=== PATIENT | female | born 1975 | race Hispanic/Latino ===

== ENCOUNTER 2020-04-17 11:32 | Emergency (ER) | payer OTHER ==
[~2020-04-17] VITALS: Ht 170.2 cm; Wt 104.3 kg
[2020-04-17] MEDS ORDERED: SODIUM CHLORIDE 0.9% 1000ML 1,000 ML IV STA (12:07)
[2020-04-17] MEDS ORDERED: ONDANSETRON HCL INJ 2MG/ML 2ML 2 MG/ML VIAL IV STA (12:07)
--- NOTE | 2020-04-17 12:08 | Emergency Department Note ---
History of Present Illnes History of Present Illness Chief Complaint: Abdominal Complaints History of Present Illness This is a 45 year old female 5 days of abd pain generalized with n/v/d. Historian: Patient Arrival Mode: Car Onset (how long ago): day(s) Radiation: Reports abdomen Severity: moderate Onset quality: gradual Duration (how long): day(s) Timing of current episode: constant Progression: worsening Relieving factors: none Exacerbating factors: none Associated symptoms: Reports nausea/vomiting Treatments prior to arrival: none Past Medical/Family History Physician Review I have reviewed the patient's past medical and family history. Any updates have been documented here. Past Medical History Recent Fever: No Clinical Suspicion of Infectio: No New/Unexplained Change in Ment: No Past Medical History: Asthma Past Surgical History: Cholecysctectomy, Tubal Ligation Social History Smoking Cessation: Never Smoker Alcohol Use: None Any Illegal Drug Use: No Review of Systems Review of Systems Constitutional: Denies fever EENTM: Reports no symptoms Cardiovascular: Reports no symptoms Respiratory: Reports no symptoms Gastrointestinal: Reports abdominal pain, Reports diarrhea, Reports nausea, Reports vomiting Genitourinary: Reports no symptoms Musculoskeletal: Reports no symptoms Integumentary: Reports no symptoms Neurological: Reports no symptoms Psychological: Reports no symptoms Endocrine: Reports no symptoms Hematological/Lymphatic: Reports no symptoms Physical Exam Related Data Allergies: Coded Allergies: Penicillins (Verified Allergy, Severe, 04/17/20) Triage Vital Signs Vital Signs Date Time Temp Pulse Resp B/P (MAP) Pulse Ox O2 Delivery O2 Flow Rate FiO2 04/17/20 12:03 97.5 81 16 149/86 100 Vital signs reviewed: Yes Physical Exam CONSTITUTIONAL Constitutional: Present well-developed, Present well-nourished HENT HENT: Present normocephalic, Present atraumatic, Present oropharynx clear/moist, Present nose normal HENT L/R: Present left ext ear normal, Present right ext ear normal EYES Eyes: Reports PERRL, Reports conjunctivae normal NECK Neck: Present ROM normal PULMONARY Pulmonary: Present effort normal, Present breath sounds normal CARDIOVASCULAR Cardiovascular: Present regular rhythm, Present heart sounds normal, Present capillary refill normal, Present normal rate GASTROINTESTINAL Abdominal: Present soft, Present distension, Present tender GENITOURINARY Genitourinary: Present exam deferred SKIN Skin: Present warm, Present dry MUSCULOSKELETAL Musculoskeletal: Present ROM normal NEUROLOGICAL Neurological: Present alert, Present oriented x 3, Present no gross motor or sensory deficits PSYCHOLOGICAL Psychological: Present mood/affect normal, Present judgement normal Results Laboratory Lab results reviewed: Yes Laboratory comments Laboratory Tests Test 04/17/20 13:00 White Blood Count 9.61 x10e3/uL (4.8-10.8) Red Blood Count 5.13 x10e6/uL (3.6-5.1) Hemoglobin 8.1 g/dL (12.0-16.0) Hematocrit 32.1 % (34.2-44.1) Mean Corpuscular Volume 62.6 fL (81-99) Mean Corpuscular Hemoglobin 15.8 pg (28-32) Mean Corpuscular Hemoglobin Concent 25.2 g/dL (31-35) Red Cell Distribution Width 22.4 % (11.7-14.4) Platelet Count 411 x10e3/uL (140-360) Neutrophils (%) (Auto) 72.0 % (38.7-80.0) Lymphocytes (%) (Auto) 16.8 % (18.0-39.1) Monocytes (%) (Auto) 8.2 % (4.4-11.3) Eosinophils (%) (Auto) 2.2 % (0.0-6.0) Basophils (%) (Auto) 0.3 % (0.0-1.0) Neutrophils # (Auto) 6.9 (2.1-6.9) Lymphocytes # (Auto) 1.6 (1.0-3.2) Monocytes # (Auto) 0.8 (0.2-0.8) Eosinophils # (Auto) 0.2 (0.0-0.4) Basophils # (Auto) 0.0 (0.0-0.1) Absolute Immature Granulocyte (auto 0.05 x10e3/uL (0-0.1) Urine Color Yellow (YELLOW) Urine Clarity Clear (CLEAR) Urine pH 6 (5 - 7) Urine Specific [place] >=1.030 (1.010-1.025) Urine Protein Negative (NEGATIVE) Urine Glucose (UA) Negative (NEGATIVE) Urine Ketones Negative (NEGATIVE) Urine Blood Moderate (NEGATIVE) Urine Nitrite Negative (NEGATIVE) Urine Bilirubin Negative (NEGATIVE) Urine Urobilinogen 0.2 mg/dL (0.2 - 1) Urine Leukocyte Esterase Negative (NEGATIVE) Urine RBC 0-5 /HPF (0-5) Urine WBC 0-5 /HPF (0-5) Urine Epithelial Cells Few /LPF (NONE) Urine Bacteria Rare /HPF (NONE) Urine Mucus Few (RARE) Urine Test Negative (NEGATIVE) Sodium Level 136 mmol/L (136-145) Potassium Level 3.4 mmol/L (3.5-5.1) Chloride Level 103 mmol/L (98-107) Carbon Dioxide Level 28 mmol/L (22-29) Anion Gap 8.4 mmol/L (8-16) Blood Urea Nitrogen 8 mg/dL (7-26) Creatinine 0.66 mg/dL (0.57-1.11) Estimat Glomerular Filtration Rate > 60 ML/MIN (60-) BUN/Creatinine Ratio 12 (6-25) Glucose Level 102 mg/dL (74-118) Calcium Level 8.4 mg/dL (8.4-10.2) Total Bilirubin 0.7 mg/dL (0.2-1.2) Aspartate Amino Transf (AST/SGOT) 44 IU/L (5-34) Alanine Aminotransferase (ALT/SGPT) 72 IU/L (0-55) Alkaline Phosphatase 58 IU/L (40-150) Total Protein 7.5 g/dL (6.5-8.1) Albumin 3.9 g/dL (3.5-5.0) Globulin 3.6 g/dL (2.3-3.5) Albumin/Globulin Ratio 1.1 (0.8-2.0) Lipase 86 U/L (8-78) Imaging Imaging results reviewed: Yes Impressions [place] [id number] Patient Name: BRADEN GARCIA MR #: [id number] : 1975 Age/Sex: 45/F Req #: [id number] Adm Physician: Ordered by: JITENDRA OCASIO DO Report #: [id number] Location: ER Room/Bed: Procedure: [id number] CT/CT ABDOMEN/PELVIS W Exam Date: 04/17/20 Exam Time: 1353 REPORT STATUS: Signed EXAM: CT Abdomen and Pelvis WITH contrast INDICATION: abd pain COMPARISON: None. TECHNIQUE: Abdomen and pelvis were scanned utilizing a multidetector helical scanner from the lung base to the pubic symphysis after administration of IV contrast. Coronal and sagittal reformations were obtained. Dose modulation, iterative reconstruction, and/or weight based adjustment of the mA/kV was utilized to reduce the radiation dose to as low as reasonably achievable. Routine protocol was performed. Scan was performed when during portal venous phase. IV CONTRAST: 150 mL of Omnipaque 300 ORAL CONTRAST: Water COMPLICATIONS: None RADIATION DOSE: Total DLP: 902.28 mGy-cm Estimated effective dose: (DLP x 0.015 x size factor) mSv CTDIvol has been reviewed. It is below the limits set by the Radiation Protocol Committee (RPC). FINDINGS: LINES and TUBES: None. LOWER THORAX: Unremarkable HEPATOBILIARY: No focal hepatic lesions. No biliary ductal dilation. GALLBLADDER: There are cholecystectomy clips. SPLEEN: No splenomegaly. No focal splenic lesion. PANCREAS: No focal masses or ductal dilatation. ADRENALS: No adrenal nodules KIDNEYS/URETERS: Kidneys enhance symmetrically. No hydronephrosis. No cystic or solid mass lesions. No stones. GI TRACT: No abnormal distention or evidence of bowel obstruction. Mild wall thickening of the ascending colon to the level of hepatic flexure likely infectious/inflammatory. PELVIC ORGANS/BLADDER: There is multi fibroid uterus. There is a 3.7 cm cystic lesion in the left adnexal region with associated small focus of calcification. Smaller cystic structure is seen in the right adnexa. Small volume of fluid is seen in the pelvis. LYMPH NODES: No lymphadenopathy. VESSELS: No aortic aneurysm or dissection. PERITONEUM / RETROPERITONEUM: No free air or fluid. BONES: Unremarkable. SOFT TISSUES: Unremarkable. IMPRESSION: 1. Mild wall thickening of the ascending colon to the level of hepatic flexure likely infectious/inflammatory. 2. Multi fibroid uterus. A 3.7 cm cystic lesion in the left adnexal region with associated small focus of calcification. Smaller cystic structure is seen in the right adnexa. These are incompletely characterized on this CT. Recommend further evaluation with pelvic ultrasound. Signed by: Sharath Preston MD on 04/17/2020 2:48 PM Dictated By: SHARATH PRESTON MD [id number] Transcribed By: DAYLIN on 04/17/20 1448 COPY TO: JITENDRA OCASIO DO~ Assessment & Plan Medical Decision Making MDM 45 yof with abdominal pain. CBC, CMP, UA and CTS ordered to r/o appendicitis, diverticulitis, UTI, kidney stone, perforated viscus, obstruction, ischemia, and biliary pathology. plan to discharge to home with Rx [facility] Assessment & Plan Final Impression: (1) Colitis (2) Fibroid Depart Disposition: HOME, SELF-CARE Last Vital Signs Date Time Temp Pulse Resp B/P (MAP) Pulse Ox O2 Delivery O2 Flow Rate FiO2 04/17/20 12:03 97.5 81 16 149/86 100 Medications in the ED Sodium Chloride 1,000 ml @ 0 mls/hr Q0M STAT IV Last administered on 04/17/20at 13:28; Admin Dose 999 MLS/HR; Start 04/17/20 at 12:07; Stop 04/17/20 at 12:09; Status DC Ondansetron HCl 4 mg ONCE STAT IV Last administered on 04/17/20at 13:28; Admin Dose 4 MG; Start 04/17/20 at 12:07; Stop 04/17/20 at 12:10; Status DC Ondansetron HCl 4 mg ONCE IV ; Start 04/17/20 at 12:15; Stop 04/17/20 at 13:00; Status DC Sodium Chloride 50 ml @ ud STK-MED ONCE .ROUTE ; Start 04/17/20 at 15:31; Stop 04/17/20 at 15:25; Status DC Iopamidol 74,000 mg STK-MED ONCE INJ ; Start 04/17/20 at 15:31; Stop 04/17/20 at 15:25; Status DC Morphine Sulfate 4 mg ONCE IV Last administered on 04/17/20at 15:59; Admin Dose 4 MG; Start 6/27/20 at 15:30; Stop 04/17/20 at 16:59; Status DC Ondansetron HCl 4 mg NOW IV Last administered on 04/17/20at 15:59; Admin Dose 4 MG; Start 04/17/20 at 15:45; Stop 04/17/20 at 16:59; Status DC JITENDRA OCASIO DO Apr 17, 2020 12:08
[2020-04-17] MEDS ORDERED: ONDANSETRON HCL INJ 2MG/ML 2ML 2 MG/ML VIAL IV NR ×2 (12:15→15:45)
[2020-04-17 13:11] LABS: BASOPHILS % 0.3 % (0.0-1.0); EOSINOPHILS # (AUTO) 0.2 (0.0-0.4); EOSINOPHILS % 2.2 % (0.0-6.0); HEMATOCRIT 32.1 % (34.2-44.1); HEMOGLOBIN 8.1 g/dL (12.0-16.0); LYMPHOCYTES # (AUTO) 1.6 (1.0-3.2); LYMPHOCYTES % 16.8 % (18.0-39.1); MEAN CORPUSCULAR HEMOGLOBIN 15.8 pg (28-32); MEAN CORPUSCULAR HGB CONC 25.2 g/dL (31-35); MEAN CORPUSCULAR VOLUME 62.6 fL (81-99); MONOCYTES # (AUTO) 0.8 (0.2-0.8); MONOCYTES % 8.2 % (4.4-11.3); NEUTROPHILS # (AUTO) 6.9 (2.1-6.9); PLATELET COUNT 411 x10e3/uL (140-360); RED BLOOD COUNT 5.13 x10e6/uL (3.6-5.1); RED CELL DISTRIBUTION WIDTH 22.4 % (11.7-14.4)
[2020-04-17 13:13] LABS: BILIRUBIN,URINE NEGATIVE (NEGATIVE); CLARITY,URINE CLEAR (CLEAR); COLOR,URINE YELLOW (YELLOW); KETONES,URINE NEGATIVE (NEGATIVE); LEUKOCYTE ESTERASE ,URINE NEGATIVE (NEGATIVE); NITRITE,URINE NEGATIVE (NEGATIVE); PROTEIN,URINE DIPSTICK NEGATIVE (NEGATIVE); URINE UROBILINOGEN 0.2 mg/dL (0.2 - 1)
[2020-04-17 13:14] LABS: PREGNANCY TEST, URINE NEGATIVE (NEGATIVE)
[2020-04-17 13:17] LABS: BACTERIA,URINE RARE /HPF; EPITHELIAL CELLS,URINE FEW /LPF; MUCUS,URINE FEW (RARE); RBC,URINE 0-5 /HPF (0-5); WBC,URINE (MAN) 0-5 /HPF (0-5)
[2020-04-17 13:30] LABS: ALANINE AMINOTRANSFERASE 72 IU/L (0-55); ALBUMIN 3.9 g/dL (3.5-5.0); ALBUMIN/GLOBULIN RATIO 1.1 (0.8-2.0); ALKALINE PHOSPHATASE 58 IU/L (40-150); ANION GAP 8.4 mmol/L (8-16); BLOOD UREA NITROGEN 8 mg/dL (7-26); BUN/CREATININE RATIO 12 (6-25); CALCIUM 8.4 mg/dL (8.4-10.2); CARBON DIOXIDE 28 mmol/L (22-29); CHLORIDE 103 mmol/L (98-107); CREATININE, SERUM 0.66 mg/dL (0.57-1.11); EST GLOMERULAR FILTRATION RATE > 60 ML/MIN (60-); GLUCOSE 102 mg/dL (74-118); LIPASE 86 U/L (8-78); POTASSIUM 3.4 mmol/L (3.5-5.1); SODIUM 136 mmol/L (136-145)
--- NOTE | 2020-04-17 14:52 | Diagnostic Imaging Report ---
EXAM: CT Abdomen and Pelvis WITH contrast INDICATION: abd pain COMPARISON: None. TECHNIQUE: Abdomen and pelvis were scanned utilizing a multidetector helical scanner from the lung base to the pubic symphysis after administration of IV contrast. Coronal and sagittal reformations were obtained. Dose modulation, iterative reconstruction, and/or weight based adjustment of the mA/kV was utilized to reduce the radiation dose to as low as reasonably achievable. Routine protocol was performed. Scan was performed when during portal venous phase. IV CONTRAST: 150 mL of Omnipaque 300 ORAL CONTRAST: Water COMPLICATIONS: None RADIATION DOSE: Total DLP: 902.28 mGy-cm Estimated effective dose: (DLP x 0.015 x size factor) mSv CTDIvol has been reviewed. It is below the limits set by the Radiation Protocol Committee (RPC). FINDINGS: LINES and TUBES: None. LOWER THORAX: Unremarkable HEPATOBILIARY: No focal hepatic lesions. No biliary ductal dilation. GALLBLADDER: There are cholecystectomy clips. SPLEEN: No splenomegaly. No focal splenic lesion. PANCREAS: No focal masses or ductal dilatation. ADRENALS: No adrenal nodules KIDNEYS/URETERS: Kidneys enhance symmetrically. No hydronephrosis. No cystic or solid mass lesions. No stones. GI TRACT: No abnormal distention or evidence of bowel obstruction. Mild wall thickening of the ascending colon to the level of hepatic flexure likely infectious/inflammatory. PELVIC ORGANS/BLADDER: There is multi fibroid uterus. There is a 3.7 cm cystic lesion in the left adnexal region with associated small focus of calcification. Smaller cystic structure is seen in the right adnexa. Small volume of fluid is seen in the pelvis. LYMPH NODES: No lymphadenopathy. VESSELS: No aortic aneurysm or dissection. PERITONEUM / RETROPERITONEUM: No free air or fluid. BONES: Unremarkable. SOFT TISSUES: Unremarkable. IMPRESSION: 1. Mild wall thickening of the ascending colon to the level of hepatic flexure likely infectious/inflammatory. 2. Multi fibroid uterus. A 3.7 cm cystic lesion in the left adnexal region with associated small focus of calcification. Smaller cystic structure is seen in the right adnexa. These are incompletely characterized on this CT. Recommend further evaluation with pelvic ultrasound. Signed by: Sharath Mark MD on 04/17/2020 2:48 PM
[2020-04-17] MEDS ORDERED: MORPHINE SULFATE INJ 4 MG/ML INJ 1ML IV NR (15:30)
[2020-04-17] MEDS ORDERED: SODIUM CHLORIDE 0.9% 50ML 50 ML ONE (15:31)
[2020-04-17] MEDS ORDERED: IOPAMIDOL 370 MG/ML 200 ML INFUS..BTL INJ ONE (15:31)
[2020-04-17 17:16] VITALS: BP 130/85
== END 2020-04-17 17:25 | disposition home or self-care (01) ==
LOC: ER 11:32
DX: R10.84 Generalized abdominal pain (principal); R11.2 Nausea with vomiting, unspecified; K52.9 Noninfective gastroenteritis and colitis, unspecified; D25.9 Leiomyoma of uterus, unspecified
CPT/HCPCS: 36415; 74177; 80053; 81001; 81025; 83690; 85025; 99284; J2270; J2405; J7030; Q9967

== ENCOUNTER 2022-09-14 20:34 | Inpatient (IN) | payer BC, OTHER ==
[~2022-09-14] VITALS: Ht 170.2 cm; Wt 104.3 kg
[2022-09-14 10:23] VITALS: BP 169/67
[2022-09-14 21:03] LABS: BASOPHILS % 0.4 % (0.0-1.0); EOSINOPHILS # (AUTO) 0.1 (0.0-0.4); EOSINOPHILS % 1.4 % (0.0-6.0); LYMPHOCYTES # (AUTO) 0.9 (1.0-3.2); LYMPHOCYTES % 16.9 % (18.0-39.1); MEAN CORPUSCULAR HEMOGLOBIN 14.7 pg (28-32); MEAN CORPUSCULAR HGB CONC 22.2 g/dL (31-35); MONOCYTES # (AUTO) 0.3 (0.2-0.8); MONOCYTES % 5.8 % (4.4-11.3); NEUTROPHILS # (AUTO) 3.9 (2.1-6.9); NEUTROPHILS % 74.9 % (38.7-80.0); PLATELET COUNT 264 x10e3/uL (140-360); RED BLOOD COUNT 2.59 x10e6/uL (3.6-5.1); RED CELL DISTRIBUTION WIDTH 22.7 % (11.7-14.4)
[2022-09-14 21:05] LABS: AMPHETAMINES SCREEN,URINE NEGATIVE (NEGATIVE); BENZODIAZEPINES SCREEN,URINE NEGATIVE (NEGATIVE); PHENCYCLIDINE SCREEN,URINE NEGATIVE (NEGATIVE)
[2022-09-14 21:10] LABS: HEMATOCRIT 17.1 % (34.2-44.1); HEMOGLOBIN 3.8 g/dL (12.0-16.0)
[2022-09-14 21:20] LABS: ALBUMIN/GLOBULIN RATIO 1.5 (0.8-2.0); ALKALINE PHOSPHATASE 45 IU/L (40-150); ANION GAP 16.2 mmol/L (8-16); BLOOD UREA NITROGEN 9 mg/dL (7-26); BUN/CREATININE RATIO 11 (6-25); CARBON DIOXIDE 22 mmol/L (22-29); CHLORIDE 105 mmol/L (98-107); CREATINE KINASE 37 IU/L (29-168); CREATININE, SERUM 0.85 mg/dL (0.57-1.11); GLUCOSE 183 mg/dL (74-118); POTASSIUM 3.2 mmol/L (3.5-5.1); SODIUM 140 mmol/L (136-145)
[2022-09-14 21:24] LABS: ALANINE AMINOTRANSFERASE < 6 IU/L (0-55)
[2022-09-14] MEDS ORDERED: SODIUM CHLORIDE 0.9% 250ML 250 ML IV ONE (21:45)
[2022-09-14 22:31] VITALS: BP 101/75
[2022-09-14] MEDS ORDERED: ALBUTEROL SULFATE INH (22:57)
[2022-09-15] VITALS (10 sets, daily range): BP systolic 128–151; BP diastolic 52–76
[2022-09-15] MEDS ORDERED: ACETAMINOPHEN 325 MG TAB PO PRN ×2 (00:30→09:45)
[2022-09-15] MEDS: GUAIFENESIN 600 MG TAB PO PRN ×3 (00:31→14:11)
[2022-09-15 00:54] LABS: CREATINE KINASE MB 0.8 ng/mL (0-5.0)
[2022-09-15 05:44] LABS: BASOPHILS % 0.2 % (0.0-1.0); LYMPHOCYTES # (AUTO) 0.6 (1.0-3.2); LYMPHOCYTES % 10.4 % (18.0-39.1); MEAN CORPUSCULAR HEMOGLOBIN 16.5 pg (28-32); MEAN CORPUSCULAR HGB CONC 23.9 g/dL (31-35); MEAN CORPUSCULAR VOLUME 68.9 fL (81-99); MONOCYTES # (AUTO) 0.2 (0.2-0.8); MONOCYTES % 3.1 % (4.4-11.3); NEUTROPHILS # (AUTO) 5.2 (2.1-6.9); PLATELET COUNT 250 x10e3/uL (140-360); RED BLOOD COUNT 2.73 x10e6/uL (3.6-5.1); RED CELL DISTRIBUTION WIDTH 26.1 % (11.7-14.4)
[2022-09-15 05:51] LABS: HEMOGLOBIN 4.5 g/dL (12.0-16.0)
[2022-09-15 05:52] LABS: HEMATOCRIT 18.8 % (34.2-44.1)
[2022-09-15 06:02] LABS: ALBUMIN 3.9 g/dL (3.5-5.0); ALBUMIN/GLOBULIN RATIO 1.5 (0.8-2.0); ALKALINE PHOSPHATASE 41 IU/L (40-150); BLOOD UREA NITROGEN 9 mg/dL (7-26); BUN/CREATININE RATIO 13 (6-25); CARBON DIOXIDE 22 mmol/L (22-29); CHLORIDE 106 mmol/L (98-107); CREATININE, SERUM 0.69 mg/dL (0.57-1.11); GLUCOSE 156 mg/dL (74-118); SODIUM 139 mmol/L (136-145)
[2022-09-15 06:08] LABS: CREATINE KINASE MB 0.8 ng/mL (0-5.0)
[2022-09-15 06:11] LABS: ALANINE AMINOTRANSFERASE < 6 IU/L (0-55)
[2022-09-15] MEDS ORDERED: ONDANSETRON HCL INJ 2MG/ML 2ML 2 MG/ML VIAL IV PRN (09:45)
[2022-09-15] MEDS ORDERED: ALBUTEROL/IPRATROPIUM 3 ML NEB NEB PRN (09:45)
[2022-09-15] MEDS: ALBUTEROL/IPRATROPIUM 3 ML NEB NEB SCH ×2 (12:50→19:20)
[2022-09-15] MEDS: METHYLPREDNISOLONE SOD SUCC 40 MG/ML VIAL 1ML IV SCH (13:01)
[2022-09-15 13:41] LABS: CREATINE KINASE MB 0.9 ng/mL (0-5.0)
[2022-09-15] MEDS ORDERED: SODIUM CHLORIDE 0.9% 250ML 250 ML ONE (16:13)
[2022-09-16] VITALS (8 sets, daily range): BP systolic 102–159; BP diastolic 57–75
[2022-09-16] MEDS ORDERED: SODIUM CHLORIDE 0.9% 250ML 250 ML ONE ×2 (00:40→08:56)
[2022-09-16] MEDS: GUAIFENESIN 600 MG TAB PO PRN ×3 (00:56→17:32)
[2022-09-16] MEDS: ALBUTEROL/IPRATROPIUM 3 ML NEB NEB SCH ×4 (03:05→20:30)
[2022-09-16 07:31] LABS: BASOPHILS % 0.3 % (0.0-1.0); HEMATOCRIT 24.6 % (34.2-44.1); HEMOGLOBIN 6.5 g/dL (12.0-16.0); LYMPHOCYTES # (AUTO) 0.9 (1.0-3.2); LYMPHOCYTES % 12.5 % (18.0-39.1); MEAN CORPUSCULAR HEMOGLOBIN 19.2 pg (28-32); MEAN CORPUSCULAR HGB CONC 26.4 g/dL (31-35); MEAN CORPUSCULAR VOLUME 72.8 fL (81-99); MONOCYTES # (AUTO) 0.6 (0.2-0.8); MONOCYTES % 8.2 % (4.4-11.3); NEUTROPHILS # (AUTO) 5.3 (2.1-6.9); NEUTROPHILS % 77.4 % (38.7-80.0); PLATELET COUNT 244 x10e3/uL (140-360); RED BLOOD COUNT 3.38 x10e6/uL (3.6-5.1); RED CELL DISTRIBUTION WIDTH 26.7 % (11.7-14.4)
[2022-09-16 07:48] LABS: ANION GAP 15.7 mmol/L (8-16); CALCIUM 8.8 mg/dL (8.4-10.2); CREATININE, SERUM 0.67 mg/dL (0.57-1.11); POTASSIUM 3.7 mmol/L (3.5-5.1)
[2022-09-16] MEDS: METHYLPREDNISOLONE SOD SUCC 40 MG/ML VIAL 1ML IV SCH (08:28)
[2022-09-16] MEDS ORDERED: SODIUM CHLORIDE 0.9% 250ML 250 ML IV ONE (10:45)
[2022-09-16] MEDS: BENZONATATE 100 MG CAP PO PRN ×2 (13:45→20:43)
[2022-09-16] MEDS ORDERED: SODIUM FERRIC GLUCONATE COMPLX 125 MG in SODIUM CHLORIDE 0.9% 100 ML IV SCH (21:30)
[2022-09-17] VITALS: BP 157/77
[2022-09-17] MEDS: GUAIFENESIN 600 MG TAB PO PRN ×2 (00:23→08:34)
[2022-09-17] MEDS: ALBUTEROL/IPRATROPIUM 3 ML NEB NEB SCH ×3 (02:20→13:26)
[2022-09-17] MEDS: BENZONATATE 100 MG CAP PO PRN ×2 (02:57→11:31)
[2022-09-17 04:00] VITALS: BP 149/74
[2022-09-17 05:18] LABS: BASOPHILS % 0.2 % (0.0-1.0); EOSINOPHILS # (AUTO) 0.1 (0.0-0.4); EOSINOPHILS % 0.7 % (0.0-6.0); HEMATOCRIT 28.4 % (34.2-44.1); HEMOGLOBIN 7.6 g/dL (12.0-16.0); LYMPHOCYTES # (AUTO) 1.4 (1.0-3.2); LYMPHOCYTES % 17.3 % (18.0-39.1); MEAN CORPUSCULAR HGB CONC 26.8 g/dL (31-35); MEAN CORPUSCULAR VOLUME 74.7 fL (81-99); MONOCYTES # (AUTO) 0.7 (0.2-0.8); MONOCYTES % 8.8 % (4.4-11.3); NEUTROPHILS # (AUTO) 5.7 (2.1-6.9); NEUTROPHILS % 71.4 % (38.7-80.0); PLATELET COUNT 225 x10e3/uL (140-360); RED CELL DISTRIBUTION WIDTH 27.2 % (11.7-14.4)
[2022-09-17 05:42] LABS: ALBUMIN/GLOBULIN RATIO 1.3 (0.8-2.0); ANION GAP 13.8 mmol/L (8-16); CALCIUM 8.7 mg/dL (8.4-10.2); CREATININE, SERUM 0.66 mg/dL (0.57-1.11); MAGNESIUM 2.1 MG/DL (1.3-2.1); PHOSPHORUS 3.6 MG/DL (2.3-4.7); POTASSIUM 3.8 mmol/L (3.5-5.1)
[2022-09-17 08:11] VITALS: BP 148/80
[2022-09-17 08:13] LABS: % IRON SATURATION 5 % (15-50); IRON 31 ug/dL (50-170); TOTAL IRON BINDING CAPACITY 641 ug/dL (261-478); TRANSFERRIN 458 mg/dL (180-382)
[2022-09-17] MEDS: METHYLPREDNISOLONE SOD SUCC 40 MG/ML VIAL 1ML IV SCH (08:35)
[2022-09-17 08:52] LABS: ANISOCYTOSIS MODERATE; HYPOCHROMASIA MODERATE; MICROCYTOSIS MODERATE; OVALOCYTES MODERATE; PLATELET ESTIMATE ADEQUATE; POLYCHROMASIA FEW; RBC MORPHOLOGY COMMENT ABNORMAL
[2022-09-17 08:53] LABS: PLATELET MORPHOLOGY COMMENT FEW LARGE
[2022-09-17 08:56] VITALS: BP 148/80
[2022-09-17] MEDS ORDERED: SODIUM FERRIC GLUCONATE COMPLX 125 MG in SODIUM CHLORIDE 0.9% 100 ML IV SCH (10:00)
[2022-09-17 11:04] VITALS: BP 144/80
[2022-09-17] MEDS ORDERED: MUCINEX600 MG PO (11:12)
[2022-09-17] MEDS ORDERED: IRON325 M1 PO (11:12)
[2022-09-17] MEDS ORDERED: Benzonatate PO (11:12)
[2022-09-17] MEDS ORDERED: VITAMIN C500 MG PO (11:12)
[2022-09-17] MEDS ORDERED: PREDNISONE5 MG PO (11:21)
[2022-09-17 15:28] VITALS: BP 170/88
[2022-09-17] MEDS ORDERED: BUDESONIDE/FORMOTEROL 160/4.5MCG INHALER INH SCH (19:00)
[2022-09-18] MEDS ORDERED: PREDNISONE 20 MG TAB PO SCH (09:00)
== END 2022-09-17 16:10 | disposition home or self-care (01) | DRG 202 ==
LOC: ER 20:40 → ERHOLD 21:30 → INTOOBSV 21:30 → MED/SURG 22:25 → OBSVTOIN 09-15 10:00
PROVIDERS: ADMIT Internal Medicine; ATTEND Internal Medicine
PROC: 30233N1 Transfusion of Nonautologous Red Blood Cells into Peripheral Vein, Percutaneous Approach (ICD-10-PCS; principal; 2022-09-14)
DX: J45.901 Unspecified asthma with (acute) exacerbation (principal); D62 Acute posthemorrhagic anemia; N92.0 Excessive and frequent menstruation with regular cycle; E66.9 Obesity, unspecified; Z68.36 Body mass index [BMI] 36.0-36.9, adult; Z90.49 Acquired absence of other specified parts of digestive tract; Z88.0 Allergy status to penicillin; Z20.822 Contact with and (suspected) exposure to COVID-19
CPT/HCPCS: 36415; 71045; 76830; 76856; 80048; 80053; 80307; 81025; 82270; 82550; 82553; 83540; 83690; 83735; 83880; 84100; 84443; 84466; 84484; 85025; 85379; 86850; 86900; 86920; 93005; 94640; 94799; 99284; G0378; J0456; J0696; J2916; J2920; J7050; P9016